=== PATIENT | male | born 1975 | race Caucasian/White ===

== ENCOUNTER 2020-08-27 05:32 | Day surgery (SDC) | payer OTHER ==
[~2020-08-27] VITALS: Ht 185.4 cm; Wt 113.4 kg
[2020-08-27 07:31] LABS: BASOPHILS 0.3 % (0-2); EOSINOPHILS 4.7 % (0-7); HEMATOCRIT 41.2 % (42.0-54.0); HEMOGLOBIN 14.5 g/dL (13.5-17.5); IMMATURE GRANULOCYTES 0.5 % (0-5); LYMPHOCYTE ABS# 1.95 10x3/uL (1.32-3.57); LYMPHOCYTES 33.1 % (15-50); MCH 31.6 pg (26.0-34.0); MCHC 35.2 g/dL (31.0-37.0); MCV 89.8 fL (80.0-100.0); NEUTROPHIL ABS# 3.03 10x3/uL (1.78-5.38); NEUTROPHILS 51.4 % (40-80); PLATELET COUNT 158 10x3/uL (130-400); RBC 4.59 10x6/uL (4.20-6.10); RDW 12.5 % (11.5-14.5); WBC 5.9 10x3/uL (4.8-10.8)
[2020-08-27 10:59] LABS: CALC OSMOLALITY 276 mosm/kg (275-300); CALCIUM 8.1 mg/dL (8.5-10.1); CARBON DIOXIDE 27.5 mmol/L (21.0-32.0); CHLORIDE - SERUM 105 mmol/L (98-107); CREATININE - SERUM 0.9 mg/dL (0.6-1.3); GLUCOSE 84 mg/dL (74-106); POTASSIUM - SERUM 4.2 mmol/L (3.5-5.1); SODIUM 138 mmol/L (136-145); UREA NITROGEN 18 mg/dL (7-18); eGFR NON AFRICAN AMERICAN > 90 mL/min (90-120)
[2020-08-27] MEDS ORDERED: IBUPROFEN600 MG PO (11:22)
[2020-08-27 11:32] VITALS: BP 126/56; Ht 185.4 cm; Wt 113.4 kg
--- NOTE | 2020-08-27 12:28 | NUR ---
SCD'S PLACED ON LEFT LEG ONLY DUE TO RIGHT TIB FIB FRACTURE, ALIVIARHARDEEP.
--- NOTE | 2020-08-28 15:54 | HP ---
PATIENT: VERONICA PERDUE MEDICAL RECORD: [id number] ACCOUNT: [id number] LOCATION:IAN : 77 ADMISSION DATE: 08/27/20 PCP: No PCP HISTORY AND PHYSICAL EXAMINATION CHIEF COMPLAINT: Right scrotal swelling. HISTORY OF PRESENT ILLNESS: The patient has a large right hydrocele. The patient recently underwent a right inguinal hernia repair with mesh up in [place]. This repair appears to be solid. There is no hydrocele on the left. No inguinal hernia on the left. The mass is nontender. It has been enlarging. It is not reducible. He states that it does cause some pain and due to its side effects his activities of daily living. I have recommended a right hydrocelectomy. PAST MEDICAL AND SURGICAL HISTORY: Right inguinal hernia repair with mesh, also tib-fib fracture, which is currently being treated. REVIEW OF SYSTEMS: Negative for heart disease or lung disease. Negative for fever. Negative for fainting or seizures. Negative for hypertension or coronary artery disease. SOCIAL HISTORY: Ex-smoker. HOME MEDICATIONS: Ibuprofen as well as triamcinolone ointment. PHYSICAL EXAMINATION: GENERAL: The patient does not appear acutely ill. He does not appear chronically ill. VITAL SIGNS: Reviewed. EARS: External ears appear normal. EYES: Extraocular movements are intact. NECK: Trachea is midline. CHEST: No intercostal retractions. PULMONARY: Nonlabored. No stridor. ABDOMEN: No peritonitis with movement. GENITOURINARY: As described above. IMPRESSION: Symptomatic right hydrocele. PLAN: Right hydrocelectomy. The risks, possible complications, and alternatives of procedure were explained to the patient. He elects to proceed. The discussion specifically included, but was not limited to, bleeding requiring emergency reoperation, infection, recurrent hydrocele, chronic pain. TRANSINT:[id number] Voice Confirmation ID: [id number] DOCUMENT ID: [id number] cc: Dr. Austin Soliz HISTORY AND PHYSICAL [id number] VERONICA PERDUE, LATANYA GOLD at 1554 CC: [id number] DICTATION DATE: 08/27/20 1013 CHARGING PLUG PLACER: 08/27/20 1118 [facility] 08/27/20 [place] [address]
--- NOTE | 2020-09-08 11:06 | OP ---
PATIENT NAME: VERONICA PERDUE MEDICAL RECORD: [id number] :77 [facility] DATE: SURGEON: LEROY DOUGLAS MD DATE OF OPERATION: 08/27/2020 PREOPERATIVE DIAGNOSIS: Symptomatic right hydrocele. POSTOPERATIVE DIAGNOSIS: Symptomatic right hydrocele. PROCEDURE: Right hydrocelectomy. SURGEON: Leroy Douglas MD SUMO WRESTLER: None. BLOOD LOSS: Please see the anesthesia sheet. DRAINS: Zero. The risks, possible complications and alternatives of the procedure were explained to the patient. He elects to proceed. The discussion specifically included, but was not limited to, bleeding requiring emergency reoperation, infection as well as recurrence of the hydrocele. DESCRIPTION OF PROCEDURE: The patient was conveyed to the operating room electively on 08/27/2020. General anesthesia was induced by the anesthesia staff. The genitals were sterilely prepped and draped. An incision was accomplished on the lateral aspect of the right scrotum. I bluntly dissected down to the hydrocele. The testicle and hydrocele were then delivered from the right scrotum. I incised into the hydrocele. Fluid was drained. I then sequentially began to excise portions of the hydrocele. I excised all of the hydrocele that I could identify. Bleeding was controlled with the electrocautery. There was no further bleeding. The remaining hydrocele tissue that was stuck to the testicle that could not be removed without damaging the testicle was ablated with the electrocautery. I then oversewed the cut edges of the hydrocele with a running locking 3-0 Vicryl suture. The testicle was then placed back into the scrotum in the proper orientation. I sutured it to the scrotum, so that it would not torse. This was done with 3-0 Vicryl suture. The subdermis was approximated with interrupted 3-0 Vicryl. The skin was approximated with a running horizontal mattress 3-0 Vicryl Rapide. A sterile dressing was applied. The patient was then extubated and conveyed to the postanesthesia care unit. I am going to dismiss him back to [facility] on tramadol. TRANSINT:[id number] Voice Confirmation ID: [id number] DOCUMENT ID: [id number] OPERATIVE REPORT [id number] VERONICA PERDUE LEROY DOUGLAS MD at 1106 CC: [id number] DICTATION DATE: 09/08/20 1012 INSURANCE CLAIMS CLERK: 09/08/20 1053 [facility] 08/27/20 [place] [id number] [place] [address]
== END 2020-08-27 14:55 | disposition home or self-care (01) ==
LOC: D.OPS 05:32
PROVIDERS: ATTEND Surgery
DX: N43.3 Hydrocele, unspecified (principal)

== ENCOUNTER 2020-09-07 16:18 | Inpatient (IN) | payer MEDICAID ==
[~2020-09-07] VITALS: Ht 185.4 cm; Wt 81.6 kg
[~2020-09-07 16:18] MED LIST: IBUPROFEN600 MG PO
[2020-09-07] MEDS ORDERED: TRAMADOL HCL E100 M1 PO (19:16)
[2020-09-07 19:54] LABS: BASOPHILS 0.3 % (0-2); EOSINOPHILS 4.3 % (0-7); HEMATOCRIT 39.5 % (42.0-54.0); HEMOGLOBIN 13.4 g/dL (13.5-17.5); IMMATURE GRANULOCYTES 0.9 % (0-5); LYMPHOCYTE ABS# 2.05 10x3/uL (1.32-3.57); LYMPHOCYTES 30.1 % (15-50); MCH 31.1 pg (26.0-34.0); MCHC 33.9 g/dL (31.0-37.0); MCV 91.6 fL (80.0-100.0); MEAN PLATELET VOLUME 9.2 fL (7.4-10.4); NEUTROPHIL ABS# 3.71 10x3/uL (1.78-5.38); NEUTROPHILS 54.4 % (40-80); RBC 4.31 10x6/uL (4.20-6.10); RDW 12.8 % (11.5-14.5); WBC 6.8 10x3/uL (4.8-10.8)
[2020-09-07 19:58] LABS: PLATELET COUNT 193 10x3/uL (130-400)
[2020-09-07 20:00] VITALS: BP 118/78
--- NOTE | 2020-09-07 20:00 | NUR ---
PT DIRECT ADMIT FROM [facility]. PT STATES HE IS POST OP DAY 10 FROM I&D OF SCROTAL HEMATOMA AND NOW HAS ANOTHER HEMATOMA. BEING ADMITTED FOR I&D IN AM. PT GOT IN SHOWER AND DID HIBI CLENS SHOWER. 20G IV STARTED TO RIGHT FA, X3 ATTEMPTS. GUARD AT BEDSIDE. TOLD PT HE IS NPO AFTER MN, VERBALIZED UNDERSTANDING. GAVE PT TURKEY SANDWICH AND TANA CRACKERS AND [place] LAY IRA SODA. DENIES OTHER NEEDS. CL IN REACH
[2020-09-07 20:12] LABS: CALC OSMOLALITY 280 mosm/kg (275-300); CALCIUM 8.7 mg/dL (8.5-10.1); CARBON DIOXIDE 25.4 mmol/L (21.0-32.0); CHLORIDE - SERUM 106 mmol/L (98-107); CREATININE - SERUM 0.9 mg/dL (0.6-1.3); GLUCOSE 110 mg/dL (74-106); POTASSIUM - SERUM 4.2 mmol/L (3.5-5.1); SODIUM 139 mmol/L (136-145); UREA NITROGEN 18 mg/dL (7-18); eGFR NON AFRICAN AMERICAN > 90 mL/min (90-120)
[2020-09-07 20:13] LABS: APTT 25.7 SECONDS (22.8-39.4); PROTIME 12.2 SECONDS (11.6-15.0)
[2020-09-07 20:32] LABS: ALBUMIN 3.4 g/dL (3.4-5.0); ALKALINE PHOSPHATASE 79 U/L (30-120); ALT (SGPT) 32 U/L (10-68); BILIRUBIN - TOTAL 0.52 mg/dL (0.2-1.3); MAGNESIUM - SERUM 2.2 mg/dL (1.8-2.4); PHOSPHOROUS 3.6 mg/dL (2.5-4.9); PROTEIN - SERUM 7.5 g/dL (6.4-8.2)
[2020-09-08] VITALS (7 sets, daily range): BP systolic 100–133; BP diastolic 55–76; Ht 185.4 cm; Wt 81.6 kg
--- NOTE | 2020-09-08 02:00 | NUR ---
PT BROUGHT TO FLOOR VIA STRETCHER, AMBULATED TO BED WITH ASSIST. USES CANE TO AMBULATE. ON 2L/NC. IV LEFT AC INFUSING NS @ 50. PT INCONTINENT OF BLADDER. REMOVED PT CLOTHING AND PLACED IN YELLOW GOWN. PLACED BRIEF ON AND NON SLIP SOCKS BILAT. PUT SCDS ON BILAT AND EDUCATED PT ON USE. PROVIDED PT WITH INCENTIVE SPIROMETER AND EDUCATED ON USE. PT STATES HIS LEFT CHEST HURTS TOO BAD RIGHT NOW TO USE IT AND WILL LATER. PROVIDED WATER. DENIES OTHER NEEDS ATT THIS TIME. CL IN REACH, BED ALARM ON
--- NOTE | 2020-09-08 08:38 | NUR ---
RECEIEVED BEDSIDE REPORT. IN BED. GUARD AT BEDSIDE. LEFT ANKLE HANDCUFFED TO THE BED. FREE FROM SIGNS OF DISTRESS. BED LOW POSITION, CALL LIGHT IN REACH. WILL CONTINUE TO MONITOR.
--- NOTE | 2020-09-08 11:32 | NUR ---
LEFT FOR SURGERY AT THIS TIME. VIA BED.
--- NOTE | 2020-09-08 14:08 | NUR ---
PT BACK FROM PROCEDURE. DRESSING CDI. GIANNA DRAIN INTACT. VITAL SIGNS STABLE. WILL CONTINUE TO MONITOR.
--- NOTE | 2020-09-08 15:06 | NUR ---
pt is [facility] pt at [facility]
--- NOTE | 2020-09-08 20:00 | NUR ---
PT SITTING UP IN BED WITHOUT DISTRESS, AOX4. GUARD AT BEDSIDE. STATES PAIN 7/10 AT THIS TIME TO SCROTUM. GIANNA DRAIN DRAINED OF 30ML DARK RED BLOOD. DENIES NEEDS, CL IN REACH
[2020-09-09] VITALS: BP 99/56
[2020-09-09 04:00] VITALS: BP 99/56; BP 99/58
--- NOTE | 2020-09-09 07:18 | NUR ---
RECIEVED BEDSIDE REPORT. PT IN BED SLEEPING. GUARD AT BEDSIDE. FREE FROM SIGNS OF DISTRESS. BED LOW POSITION, CALL LIGHT IN REACH. GUARD AT BEDSIDE. WILL CONTINUE TO MONITOR.
[2020-09-09 08:21] VITALS: BP 123/70
--- NOTE | 2020-09-09 09:44 | OP ---
PATIENT NAME: VERONICA PERDUE MEDICAL RECORD: [id number] :77 LOCATION:[facility] [place] ADMISSION DATE:09/07/20 SURGEON: LATANYA DOUGLAS MD DATE OF OPERATION: 09/08/2020 PREOPERATIVE DIAGNOSIS: Right scrotal hematoma. POSTOPERATIVE DIAGNOSIS: Right scrotal hematoma. PROCEDURES: Incision and evacuation of right scrotal hematoma. SURGEON: aLtanya Douglas MD AIRPLANE PATROL PILOT: None. BLOOD LOSS: Please see the anesthesia sheet, probably 25 cc of new blood loss. The risks, possible complications and alternatives of the procedure were explained to the patient. He elects to proceed. I saw the patient in the holding area. He was conveyed to the operating room. He was placed in the lithotomy position. The perineum and genitals were sterilely prepped and draped. I entered through the patient's previous incision on the lateral aspect of the right scrotum. I cut the superficial sutures and then the subcutaneous sutures. There was a good deal of non-clotted blood that came out spontaneously. It was under pressure. I noted no air coming out through the incision. There were some blood clots and these were evacuated as well. I wanted to deliver the testicle from the scrotum. I could not do this through the existing incision, so I lengthened it in a cephalad and caudad direction. I was able to deliver the testicle. It was irrigated. I checked Doppler signal for arterial signal as well as venous signal and I could identify both. I then returned the testicle to the scrotum. A 19-[place] round Richard drain was brought out through a stab incision on the lateral aspect of the scrotum. It was sutured to the scrotal skin with a 2-0 silk. The subdermis was approximated with interrupted 3-0 Vicryl. The skin was approximated with a running horizontal mattress 2-0 Vicryl. A sterile dressing was applied. The patient was then extubated and conveyed to post-anesthesia care unit where he was in stable condition. We are going to keep him in the hospital overnight to watch for bleeding. TRANSINT:[id number] Voice Confirmation ID: [id number] DOCUMENT ID: [id number] LATANYA DOUGLAS MD at 0944 CC: [id number] DICTATION DATE: 09/08/20 1443 HVAC ENGINEER: 09/08/20 220 ADM IN [facility] [address] [facility] [place] [address]
[2020-09-09 12:42] VITALS: BP 126/75
[2020-09-09 17:39] VITALS: BP 130/67
--- NOTE | 2020-09-09 19:26 | NUR ---
DISCHARGE TEACHING COMPLETE. NO FURTHER QUESTIONS. IV CATH REMOVED. CATH TIP INTACT. CALLED REPORT TO THE [facility] AT [phone] AND SPOKE TO PASCUAL MADDOX. SHE SAID SHE WOULD CALL FOR TRANSPORT. AWATING TRANSPORT TO ARRIVE.
--- NOTE | 2020-09-09 23:20 | NUR ---
PT TRANSPORTED BACK TO [facility] AT THIS TIME WITH [facility] PERSONNEL BY WHEELCHAIR
--- NOTE | 2020-09-10 15:09 | DS ---
PATIENT:VERONICA PERDUE :77 MEDICAL RECORD: [id number] DISCHARGE SUMMARY ADMISSION DATE: 09/07/20 DISCHARGE DATE: 09/09/20 PRINCIPAL DIAGNOSIS: Postoperative right scrotal hematoma. PROCEDURE: Incision and evacuation of right scrotal hematoma. OTHER DIAGNOSES: Include history of fracture to the right leg, eczema, history of appendectomy, history of herniorrhaphy. HOSPITAL COURSE: The patient had undergone a hydrocele repair by me. He developed marked swelling of the right scrotum. He was transferred here as a direct admit. He underwent incision and evacuation with placement of a drain. I have taught him how to strip the drain. My recommendation is that he continue on tramadol at the long term facility. I have done the doc-to-doc call with Dr. Mason at the long term. I can see the patient in followup at the [facility] today. TRANSINT:[id number] Voice Confirmation ID: [id number] DOCUMENT ID: [id number] LATANYA DOUGLAS MD at 1509 CC: [id number] DICTATION DATE: 09/09/20 180 DOCUMENT EXAMINER: 09/10/20 0907 DIS IN 09/09/20 [facility] [address] [place] [address]
== END 2020-09-09 23:20 | disposition home or self-care (01) | DRG 989 ==
LOC: D.MS 16:18
PROVIDERS: ADMIT Surgery; ATTEND Surgery
PROC: 0V950ZZ Drainage of Scrotum, Open Approach (ICD-10-PCS; principal; 2020-09-08 12:00)
DX: N99.840 Postprocedural hematoma of a genitourinary system organ or structure following a genitourinary system procedure (principal)